=== PATIENT | female | born 1935 | race Caucasian/White ===

== ENCOUNTER 2020-11-15 20:41 | Inpatient (IN) | payer MEDICARE, OTHER ==
[~2020-11-15] VITALS: Ht 157.5 cm; Wt 54.4 kg
--- NOTE | ~2020-11-15 | PROC ---
[address] [address] PROCEDURE REPORT Name: EMMY CALIXTO Room: [address] IN M.R.#: [id number] Admission: 11/16/20 Attend Phys: Avelino Floyd MD Discharge: 11/18/20 Date of : 37 Report #: [id number] THIS REPORT FOR: cc: Freddy Dougherty Vincent DO [facility],Medical Records Staff ~ For GI report, please see the Provation report in Perceptive 7 content. By: [id number] Records Staff TENZIN /YFN
[2020-11-15 20:45] VITALS: BP 143/54
[2020-11-15] MEDS ORDERED: ZESTRIL40 MG PO (20:46)
[2020-11-15] MEDS ORDERED: NORVASC5 MG PO (20:46)
[2020-11-15 21:12] LABS: ABSOLUTE EOSINOPHILS 0.1 thou/uL (0.0-0.7); ABSOLUTE LYMPHOCYTES 1.5 thou/uL (0.8-5.3); ABSOLUTE MONOCYTES 0.6 thou/uL (0.0-1.2); ABSOLUTE NEUTROPHILS 4.8 thou/uL (1.6-8.1); BASOPHILS 0.7 %; EOSINOPHILS 1.3 %; HEMATOCRIT 38.2 % (37.0-47.0); LYMPHOCYTES 21.2 %; MCH 29.5 pg (26.0-34.0); MCV 86.9 fL (80.0-100.0); MONOCYTES 9.1 %; MPV 6.6 fl. (7.2-11.1); NUCLEATED RBCS 0 /100WBC; PLATELET COUNT* 277 thou/uL (150-400); POLYS 67.7 %; WBC 7.1 thou/uL (4.0-11.0)
[2020-11-15 21:29] LABS: CALCIUM 8.7 mg/dL (8.5-10.1); CREATININE 0.7 mg/dL (0.6-1.3); POTASSIUM 3.3 mmol/L (3.5-5.1)
[2020-11-15 21:40] LABS: ALBUMIN 3.6 g/dL (3.4-5.0); TOTAL BILIRUBIN 0.7 mg/dL (<0.1-1.0); TOTAL PROTEIN 7.2 g/dL (6.4-8.2)
[2020-11-15 23:22] LABS: URINE BLOOD NEGATIVE (Negative); URINE CLARITY CLEAR; URINE COLOR YELLOW; URINE GLUCOSE-RANDOM NEGATIVE (Negative); URINE KETONES 2+ (Negative); URINE LEUKOCYTES-REFLEX NEGATIVE (Negative); URINE NITRITE-REFLEX NEGATIVE (Negative); URINE PROTEIN NEGATIVE (Negative); URINE UROBILINOGEN 0.2 E.U./dl (0.2-1.0)
[2020-11-15 23:24] LABS: ICTOTEST (BILI CONFIRMATORY) Negative (Negative); URINE BILIRUBIN 2+ (Negative)
[2020-11-16 06:08] VITALS: BP 118/50
[2020-11-16 08:43] VITALS: BP 116/72
[2020-11-16 09:00] VITALS: BP 149/73
--- NOTE | 2020-11-16 10:01 | EKG ---
[place] [address] ELECTROCARDIOGRAM REPORT Name: EMMY CALIXTO [address] [id number] Admission: 11/16/20 Attend Phys: Avelino Floyd, Discharge: Date of : 37 Date of Service: 11/15/202049 Report #: [id number] THIS REPORT FOR: //name// [facility] ED Test Date: 2020-11-15 Test Time: 20:50:42 Pat Name: EMMY CALIXTO Department: Room: [facility] Gender: F Job Foreman: DONALD : 1935 Requested By: Makayla Blanca Order Number: [id number] MD: Quinn Silver Measurements Intervals [place] Rate: 70 P: [place]: QRS: -5 QRSD: 125 T: 28 QT: 432 QTc: 467 Interpretive Statements sinus rhythm artifact noted Right bundle branch block No previous ECG available for comparison Electronically Signed On 11-16-2020 10:00:58 CDT by Quinn Silver [email or web address] <ELECTRONICALLY SIGNED> By: Quinn Silver MD, [facility] 11/16/20999 49 49 Quinn Silver MD, [facility] /EPI
--- NOTE | 2020-11-16 16:42 | NUR ---
cm s/w pt to discuss d/c planning. pt lives home alone. has 2 entryway steps and no steps inside of the home. pt is active and independent w/adls. pt uses a walker prn. pt has hx with [facility] many yr ago, doesnt recall which company. pt has hx with [facility] in 01/2020 and does not wish to rtrn to that facility d/t "poor experience." cm to cont to follow.
[2020-11-16 16:59] VITALS: BP 159/87
--- NOTE | 2020-11-16 19:30 | CON ---
[address] [address] CONSULTATION Name: EMMY CALIXTO Room: [address] IN .R.#: [id number] Admission: 11/16/20 Attend Phys: Avelino Floyd MD Discharge: Date of : 37 Report #: [id number] THIS REPORT FOR: cc: Freddy Dougherty,Cory Clarke DO ~ cc: Dr. Freddy Dougherty DATE OF CONSULTATION: 11/16/2020 Please note at the time of this dictation, the patient was seen and physically examined by myself. REASON FOR CONSULTATION: Abdominal pain, constipation and abnormal CT. HISTORY OF PRESENT ILLNESS: This is a pleasant 85-year-old female who has been in relatively good health up until last fall when she tripped over an exercising bike and had a vertebral fracture, which landed her in the hospital and then subsequently in a Rehab Center for about 1 month. She states during that time she had a significant change in her bowel habits. Normally, prior to that time, she used to walk a mile a day. She makes all of her own food sauces and eats very healthy and tries to grow most of her vegetables and goes to the [employer] on a regular basis for this. She states that back in [id number] when she lost her , she had lost a significant amount of weight and her PCP recommended that she undergo an EGD and colonoscopy, which was completely normal at that time and states it was more stress related and she recovered from that. About 10 years ago, her PCP recommended to have another colonoscopy; however, she did not complete that because she passed out during taking the prep and had a lot of vomiting with it and was unsuccessful in getting that performed. Since that time last fall, the patient states her bowels have not been the same. She has had to constantly be taking things to help with her bowels on a regular basis. She has been taking stool softeners. She has been given herself some enemas here right lately, which has helped. She states she has never had anything like this happen to her before and this all started after her fall last February. Up until recently, she has been tried on numerous mfdf-ltz-bxeitmo agents, although she did have a little bit of nausea associated with this. More pain, more on the right side, which has improved after she has had several bowel movements since she got here. ALLERGIES: No known drug allergies. MEDICATIONS FROM HOME: Lisinopril and amlodipine. PAST MEDICAL HISTORY: [place] [address] CONSULTATION Name: EMMY CALIXTO Room: [address] IN ..#: [id number] Admission: 11/16/20 Attend Phys: Avelino Floyd MD Discharge: Date of : 37 Report #: [id number] PAST SURGICAL HISTORY: She has had numerous surgeries done in the past including a hysterectomy, appendectomy, cholecystectomy, tonsillectomy. FAMILY HISTORY: She has sisters that have had lupus and MS. SOCIAL HISTORY: She lives alone. She denies any alcohol or tobacco use or any illegal drug use. She does have a friend in which she spends a great deal of time with. REVIEW OF SYSTEMS: Twelve-point review of systems essentially negative except what is mentioned in the HPI. PHYSICAL EXAMINATION: VITAL SIGNS: Temperature 36.5, pulse 67, respirations 18, blood pressure 149/73. HEART: Regular rate and rhythm. LUNGS: Clear. ABDOMEN: Soft. Positive bowel sounds in all 4 quadrants with tenderness noted over on the right side. LABORATORY DATA: LFTs are completely normal. GFR is 80. White blood cell count is 7.1, hemoglobin is 13, platelets are 277. CT scan showed mild wall thickening of the cecum, may reflect some mild focal colitis. She has fluid filled nondilated loops of small bowel that are nonspecific and some colonic diverticulosis noted. IMPRESSION: 1. Abdominal pain, improved. 2. Constipation, improving. 3. Abnormal CT showing mild colonic wall thickening at the cecum. 4. Family history, sisters lupus and multiple sclerosis. PLAN: 1. Colonoscopy tomorrow with Dr. Finney. We will do Dulcolax and mag citrate. Given her past history, unable to do large volumes. 2. Further recommendations to be made after the procedure has been performed. Thank you for allowing us to participate in this patient's care. Please do not hesitate to call with any questions regarding this consult. <ELECTRONICALLY SIGNED> By: Cory Finney DO 11/16/200 [id number] Finney DO /nt
[2020-11-16 21:20] VITALS: BP 132/80
[2020-11-17 08:20] VITALS: BP 122/66
--- NOTE | 2020-11-17 14:07 | NUR ---
Anticipate dc tomorrow. Pt to have colonoscopy today.
[2020-11-17 16:00] VITALS: BP 122/66
--- NOTE | 2020-11-17 18:35 | NUR ---
PATIENT HAS REMAINED A&OX4, PLEASANT AND COOPERATIVE WITH CARES THIS SHIFT. MEDICATIONS ADMINISTERED ORDERED. CALL LIGHT AND FREQUENLTY USED ITEMS WITHIN REACH.
[2020-11-18 06:08] LABS: HEMATOCRIT 34.6 % (37.0-47.0); HEMOGLOBIN 11.5 gm/dL (12.0-15.0); MCH 29.2 pg (26.0-34.0); MCHC 33.2 g/dL (28.0-37.0); MCV 87.9 fL (80.0-100.0); MPV 6.7 fl. (7.2-11.1); RBC 3.93 mil/uL (4.20-5.00); RDW-CV 14.9 % (10.5-14.5); WBC 4.8 thou/uL (4.0-11.0)
[2020-11-18 06:19] LABS: CALCIUM 8.2 mg/dL (8.5-10.1); CREATININE 0.7 mg/dL (0.6-1.3); MAGNESIUM 1.9 mg/dL (1.8-2.4); POTASSIUM 3.8 mmol/L (3.5-5.1); TOTAL BILIRUBIN 0.5 mg/dL (<0.1-1.0); TOTAL PROTEIN 6.1 g/dL (6.4-8.2)
--- NOTE | 2020-11-18 06:50 | NUR ---
PATIENT HAS BEEN RESTLESS DURING THE NIGHT. VSS ON RA. MEDICATIONS GIVEN ORDERED AND CHARTED. NO C/O PAIN. NO NAUSEA OR VOMITING. PATIENT UP WITH SBA TO BSC. NO BM DURING THE NIGHT. IV IN LEFT HAND-SL. PATIENT INSTRUCTED TO USE CALL LIGHT WHEN NEEDING ASSISTANCE. HOURLY ROUNDS MADE. WILL CONTINUE WITH PLAN OF CARE AND NURSING TO MONITOR.
[2020-11-18 07:53] VITALS: BP 143/78
[2020-11-18] MEDS ORDERED: MIRALAX17 GM PO (09:57)
[2020-11-18 15:55] VITALS: BP 123/76
[2020-11-18 16:25] VITALS: BP 123/76
[2020-11-18 18:06] VITALS: BP 123/76
--- NOTE | 2020-11-18 18:08 | NUR ---
PATIENT HAS REMAINED A&OX4, PLEASANT AND COOPERATIVE WITH CARES THIS SHIFT. MEDICATIONS ADMINISTERED ORDERED. DISCHARGE INSTRUCTIONS GIVEN TO PATIENT AND MEDICATIONS REVIEWED. PATIENT DENIES PAIN/N/V/QUESTIONS/CONCERNS PRIOR TO DISCHARGE. IV REMOVED. PATIENT AMBULATED OFF UNIT WITH PERSONAL BELONGINGS, ACCOMPANIED BY NURSING STAFF AND S.O. AT APPROX. 1750.
== END 2020-11-18 17:50 | disposition home or self-care (01) | DRG 392 ==
LOC: M.ERS 20:41 → M.TBA-ER 11-16 03:18 → M.3W 11-16 09:13
PROVIDERS: Internal Medicine; Personal Emergency Response Attendant; ADMIT Internal Medicine; ATTEND Internal Medicine
PROC: 0DJD8ZZ Inspection of Lower Intestinal Tract, Via Natural or Artificial Opening Endoscopic (ICD-10-PCS; principal; 2020-11-17)
DX: K52.9 Noninfective gastroenteritis and colitis, unspecified (principal); I10 Essential (primary) hypertension; Z60.2 Problems related to living alone; K64.4 Residual hemorrhoidal skin tags; K57.30 Diverticulosis of large intestine without perforation or abscess without bleeding; G47.00 Insomnia, unspecified; K21.9 Gastro-esophageal reflux disease without esophagitis; Z79.899 Other long term (current) drug therapy; Z83.2 Family history of diseases of the blood and blood-forming organs and certain disorders involving the immune mechanism; Z90.710 Acquired absence of both cervix and uterus; Z90.49 Acquired absence of other specified parts of digestive tract